=== PATIENT | female | born 1990 | race Two or more races ===

== ENCOUNTER → 2018-12-02 | Outpatient (REF) | payer OTHER ==
[2018-12-05 16:12] LABS: CHLAMYDIA DNA AMPLIFICATION NEGATIVE (NEGATIVE); GC DNA AMPLIFICATION NEGATIVE (NEGATIVE)
== END ==
LOC: M SFHCLERA 16:07
PROVIDERS: ATTEND Physician Assistant
DX: R10.31 Right lower quadrant pain (principal)
CPT/HCPCS: 81002; 81025; 87086; 87661; G0463

== ENCOUNTER → 2020-10-08 | Outpatient (REF) | payer OTHER | LOC: M WUC 15:40 | PROVIDERS: ATTEND Physician Assistant | DX: R30.0 Dysuria (principal) ==